=== PATIENT | female | born 1970 | race African-American/Black ===

== ENCOUNTER 2017-11-25 10:36 | Emergency (ER) | payer MEDICAID ==
[~2017-11-25] VITALS: Ht 167.6 cm; Wt 65.0 kg
[~2017-11-25 10:36] MED LIST: MULT-348 PO; PHEN100C4 PO
[2017-11-25 12:57] VITALS: BP 118/77
== END 2017-11-25 13:10 | disposition home or self-care (01) ==
LOC: ER 11:04
DX: G40.909 Epilepsy, unspecified, not intractable, without status epilepticus (principal); R41.82 Altered mental status, unspecified
CPT/HCPCS: 99283